=== PATIENT | male | born 2000 | race Caucasian/White ===

== ENCOUNTER 2022-02-12 15:44 | Emergency (ER) | payer MEDICAID ==
[~2022-02-12] VITALS: Ht 175.3 cm; Wt 131.8 kg
[2022-02-12 16:29] VITALS: BP 144/55
[2022-02-12] MEDS ORDERED: IBUPROFEN 600 MG TABLET PO ONE (16:30)
== END 2022-02-12 18:46 | disposition home or self-care (01) ==
LOC: EMS 15:49
DX: S83.92XA Sprain of unspecified site of left knee, initial encounter (principal); X58.XXXA Exposure to other specified factors, initial encounter; Y93.89 Activity, other specified; Y92.89 Other specified places as the place of occurrence of the external cause; Y99.8 Other external cause status
CPT/HCPCS: 99283